=== PATIENT | male | born 1965 | race Two or more races ===

== ENCOUNTER 2021-11-15 14:01 | Emergency (ER) | payer SELFPAY ==
[~2021-11-15] VITALS: Ht 167.6 cm; Wt 77.1 kg
[2021-11-15 14:37] VITALS: BP 130/88
[2021-11-15] MEDS: cefTRIAXone SOD 1,000 MG VL IM ONE (16:26)
[2021-11-15] MEDS: DexAMETHasone SOD PHOS 10MG/1ML VIAL INJ IM ONE (16:26)
== END 2021-11-15 17:01 | disposition home or self-care (01) ==
LOC: ER 14:01
DX: U07.1 COVID-19 (principal); J12.82 Pneumonia due to coronavirus disease 2019; E78.5 Hyperlipidemia, unspecified; I10 Essential (primary) hypertension
CPT/HCPCS: 71045; 96372; 99284; J0696; J1100